=== PATIENT | female | born 1990 | race Caucasian/White ===

== ENCOUNTER 2019-04-07 20:35 | Emergency (ER) | payer OTHER ==
[2019-04-07 20:57] VITALS: BP 115/69; PULSE 72; TEMP 98.3; BMI 25.0
--- NOTE | 2019-04-07 21:50 | PDOC ---
Documentation entered by Maria Eugenia Perry SCRIBE, acting as scribe for Clover Reagan MD. Clover Reagan MD: This documentation has been prepared by the Orlando patel Lincy, SCRIBE, under my direction and personally reviewed by me in its entirety. I confirm that the documentation accurately reflects all work, treatment, procedures, and medical decision making performed by me. Attending Attestation - Resident Resident Name: Dipti Richards - ED Attending Attestation I have performed the following: I have examined & evaluated the patient, The case was reviewed & discussed with the resident, I agree w/resident's findings & plan, Exceptions are as noted - HPI HPI: 04/07/19 21:44 29-year-old female states her last menstrual period was February 01, 2019 and she noticed some bleeding when she wiped herself with toilet paper - Physicial Exam PE: 04/07/19 21:44 wnwd 29 yo female in no acute distress who noted blood on the toilet paper when she wiped. No pelvic cramping. head ncat neck supple lungs cta b/l cvs [id number] abd nontender no flank pain skin warm and dry neuro axox3,ambulatory - Medical Decision Making 04/07/19 21:50 She said her last menstrual period was February 01 She does have an appointment in April 16 with [facility] 04/07/19 21:52 Plan: type and screen, CBC, beta hCG and transvaginal ultrasound 04/07/19 22:41 blood type A POSITIVE 04/07/19 22:41 cbc no anemia, no leukocytosis 04/07/19 23:32 Beta-hCG is over 20,000 Transvaginal ultrasound shows a gestational sac but there is no pole and no cardiac activity concern for demise or ectopic Patient has an appointment this week with [facility] and she has no pelvic cramping or pain at this time Patient was told to return immediately if she develops any pain she was told to have repeat beta-hCG and ultrasound in 48 hours
[2019-04-07 21:51] LABS: BASO % 0.7 % (0-2.0); EOS % 2.4 % (0-4.5); HEMATOCRIT 39.7 % (32.4-45.2); HEMOGLOBIN 13.5 GM/dL (10.7-15.3); LYMPH % 44.4 % (8-40); MCHC 33.9 g/dl (32.0-36.0); MEAN CELL VOLUME 94.2 fl (80-96); MEAN PLT VOLUME 8.9 fl (7.5-11.1); NEUT % 45.5 % (42.8-82.8); PLATELET COUNT 227 K/MM3 (134-434); RBC 4.22 M/mm3 (3.60-5.2); RDW 12.8 % (11.6-15.6); WHITE BLOOD COUNT 4.9 K/mm3 (4.0-10.0)
--- NOTE | 2019-04-07 22:07 | PDOC ---
History of Present Illness - General Chief Complaint: Vaginal Bleeding Stated Complaint: BLEEDING (9WEEKS ) Time Seen by Provider: 04/07/19 21:16 - History of Present Illness Initial Comments: 04/07/19 22:02 29 y/o F with no significant PMH present to the ED for spotting while 9 weeks . Pt explains that she noted blood on toilet paper after wiping herself this morning. the spotting is associated with mild LLQ abdominal pain but otherwise no other symptoms. Pt took a home test after missed period with positive result. Pt does have her first appointment coming up on monday. She denies any precipitating event. Denies any persistent cramping, discharge or clots. 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 ROS: Constitutional: no fever,no chills HEENT: no throat pain, no dysphagia Cardiovascular: no chest pain, no palpitations Respiratory: no cough, no shortness of breath Gastrointestinal: no Nausea, vomiting Genitourinary: no dysuria no urgency Musculoskeletal: no myalgia, no arthralgia Skin: warm and dry Neurologic: no headache, no weakness Psych: no agitation, no anxiety PE: VSS GEN: NAD HEENT: PERRLA, moist membrane, clear conjunctiva NECK: no JVD CHEST: vesicular breath sounds b/l HEART: RRR no murmur, rubs or gallop ABDOMEN: + BS, NTND Extremities: 2+ pulses, no edema SKIN: warm, dry MSK: normal ROM in all extremities PSYCH: normal affect Plan: Serum bHCG, type and screen, CBC, CMP, UA transvaginal US 04/07/19 22:11 CBC,CMP WBC 4.9 K/mm3 (4.0-10.0) 04/07/19 21:40 RBC 4.22 M/mm3 (3.60-5.2) 04/07/19 21:40 Hgb 13.5 GM/dL (10.7-15.3) 04/07/19 21:40 Hct 39.7 % (32.4-45.2) 04/07/19 21:40 MCV 94.2 fl (80-96) 04/07/19 21:40 MCH 32.0 pg (25.7-33.7) 04/07/19 21:40 MCHC 33.9 g/dl (32.0-36.0) 04/07/19 21:40 RDW 12.8 % (11.6-15.6) 04/07/19 21:40 Plt Count 227 K/MM3 (134-434) 04/07/19 21:40 MPV 8.9 fl (7.5-11.1) 04/07/19 21:40 Absolute Neuts (auto) 2.2 K/mm3 (1.5-8.0) 04/07/19 21:40 Neutrophils % 45.5 % (42.8-82.8) 04/07/19 21:40 Lymphocytes % 44.4 % (8-40) H 04/07/19 21:40 Monocytes % 7.0 % (3.8-10.2) 04/07/19 21:40 Eosinophils % 2.4 % (0-4.5) 04/07/19 21:40 Basophils % 0.7 % (0-2.0) 04/07/19 21:40 Nucleated RBC % 0 % (0-0) 04/07/19 21:40 Sodium 138 mmol/L (136-145) 04/07/19 21:40 Potassium 3.8 mmol/L (3.5-5.1) 04/07/19 21:40 Chloride 106 mmol/L (98-107) 04/07/19 21:40 Carbon Dioxide 24 mmol/L (21-32) 04/07/19 21:40 Anion Gap 8 MMOL/L (8-16) 04/07/19 21:40 BUN 11.4 mg/dL (7-18) 04/07/19 21:40 Creatinine 0.6 mg/dL (0.55-1.3) 04/07/19 21:40 Est GFR (CKD-EPI)AfAm 141.76 04/07/19 21:40 Est GFR (CKD-EPI)NonAf 122.31 04/07/19 21:40 Random Glucose 87 mg/dL (74-106) 04/07/19 21:40 Calcium 9.5 mg/dL (8.5-10.1) 04/07/19 21:40 Total Bilirubin 0.2 mg/dL (0.2-1) 04/07/19 21:40 AST 13 U/L (15-37) L 04/07/19 21:40 ALT 20 U/L (13-61) 04/07/19 21:40 Alkaline Phosphatase 41 U/L (45-117) L 04/07/19 21:40 Total Protein 7.6 g/dl (6.4-8.2) 04/07/19 21:40 Albumin 4.3 g/dl (3.4-5.0) 04/07/19 21:40 Beta HCG, Quant 60976.6 mIU/ml 04/07/19 21:40 cbc and cmp unremarkable. serum bHCG 88065.6 04/07/19 22:27 transvaginal US gestational sac 5 weeks 4 days in the endometrium. no yolk sac, pole, or cardiac activity. cannot exclude demise or ectopic . small adjacent subchorionic hemorrhage. type and screen A+. no need for rhogam. will discharge home with f/u with [facility] appointment at [facility] Past History - Past Medical History Allergies/Adverse Reactions: Allergies Allergy/AdvReac Type Severity Reaction Status Date / Time No Known Allergies Allergy Verified 04/07/19 20:57 COPD: No - Reproductive History Is Patient Now?: Yes - Psycho Social/Smoking Cessation Hx Smoking History: Never smoked Have you smoked in the past 12 months: No Information on smoking cessation initiated: No Hx Alcohol Use: No Drug/Substance Use Hx: No *Physical Exam - Vital Signs Last Vital Signs Temp Pulse Resp BP Pulse Ox 98.3 F 72 17 115/69 100 04/07/19 20:54 04/07/19 20:54 04/07/19 20:54 04/07/19 20:54 04/07/19 20:54 ED Treatment Course - LABORATORY CBC & Chemistry Diagram: 04/07/19 21:40 04/07/19 21:40 - ADDITIONAL ORDERS Additional order review: 04/07/19 21:40 RBC 4.22 MCV 94.2 MCHC 33.9 RDW 12.8 MPV 8.9 Neutrophils % 45.5 Lymphocytes % 44.4 H Monocytes % 7.0 Eosinophils % 2.4 Basophils % 0.7 - RADIOLOGY Radiology Studies Ordered: Category Date Time Status TRANSVAGINAL US PREG [US] Stat Ultrasound 04/07/19 21:25 Ordered Discharge - Discharge Information Problems reviewed: Yes Clinical Impression/Diagnosis: Spotting affecting in first trimester Condition: Improved Disposition: HOME - Admission No - Follow up/Referral Referrals: Naila Harrell MD [Primary Care Provider] - - Patient Discharge Instructions Patient Printed Discharge Instructions: DI for Vaginal Bleeding During Additional Instructions: You came into the Emergency room because of vaginal spotting while wiping today. We did blood work and a transvaginal ultrasound and it confirmed your . We also did a urine test which was negative for infection. 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 If you begin to experience severe abdominal pain, increasing bleeding, vaginal discharge, chest pain, shortness of breath please return to the emergency room immediately. - Post Discharge Activity
[2019-04-07 22:57] LABS: ALBUMIN 4.3 g/dl (3.4-5.0); BILIRUBIN,TOTAL 0.2 mg/dL (0.2-1); BLOOD UREA NITROGEN 11.4 mg/dL (7-18); CALCIUM 9.5 mg/dL (8.5-10.1); CREATININE 0.6 mg/dL (0.55-1.3); POTASSIUM 3.8 mmol/L (3.5-5.1); TOT PROT 7.6 g/dl (6.4-8.2)
== END 2019-04-07 23:42 | disposition home or self-care (01) ==
LOC: JER 20:35
DX: O26.891 Other specified pregnancy related conditions, first trimester (principal); O26.851 Spotting complicating pregnancy, first trimester; Z3A.01 Less than 8 weeks gestation of pregnancy
CPT/HCPCS: 36415; 76817-TC; 80053; 84702; 85025; 86850; 86900; 86901; 99284-25

== ENCOUNTER 2019-11-29 18:23 | Emergency (ER) | payer OTHER ==
[2019-11-29 18:41] VITALS: BP 138/80; PULSE 83; TEMP 98.7; BMI 25.9
--- OUTSIDE RECORDS SUMMARY | 2019-11-29 18:44 | XMS ---
:1990 Author Organization [facility] Support Name Relationship Address Phone FRANCISCO SHOP Unavailable [address] [place] [address] UE Unavailable Unavailable Unavailable CHRIS MOY [address] [facility] [address] [place] [id number] Re-disclosure Warning The records that you are about to access may contain information from federally- assisted alcohol or drug abuse programs. If such information is present, then the following federally mandated warning applies: This information has been disclosed to you from records protected by federal confidentiality rules (42 CFR part 2). The federal rules prohibit you from making any further disclosure of this information unless further disclosure is expressly permitted by the written consent of the person to whom it pertains or as otherwise permitted by 42 CFR part 2. A general authorization for the release of medical or other information is NOT sufficient for this purpose. The Federal rules restrict any use of the information to criminally investigate or prosecute any alcohol or drug abuse patient.The records that you are about to access may contain highly sensitive health information, the redisclosure of which is protected by Article 27-F of the [facility] Public Health law. If you continue you may haveaccess to information: Regarding HIV / AIDS; Provided by facilities licensed or operated by the [facility] Office of Mental Health; or Provided by the [facility] Office for People With Developmental Disabilities. If such information is present, then the following [facility] mandated warning applies: This information has been disclosed to you from confidential records which are protected by state law. State law prohibits you from making any further disclosure of this information without the specific written consent of the person to whom it pertains, or as otherwise permitted by law. Any unauthorized further disclosure in violation of state law may result in a fine or group home sentence or both. A general authorization for the release of medical or other information is NOT sufficient authorization for further disclosure. Insurance Providers Payer name Policy type Policy ID Covered Covered constitution party's Policy P maddie / Coverage constitution party ID relationship to [employer] type [place] IDALIA [id number] [address] [place] [address] CAP
[2019-11-29 19:28] LABS: BASO % 0.6 % (0-2.0); EOS % 1.2 % (0-4.5); HEMATOCRIT 41.6 % (32.4-45.2); HEMOGLOBIN 14.1 GM/dL (10.7-15.3); LYMPH % 34.5 % (8-40); MCHC 33.9 g/dl (32.0-36.0); MEAN CELL VOLUME 94.4 fl (80-96); MEAN PLT VOLUME 9.4 fl (7.5-11.1); MONO % 6.3 % (3.8-10.2); NEUT % 57.4 % (42.8-82.8); PLATELET COUNT 233 K/MM3 (134-434); RDW 12.2 % (11.6-15.6); WHITE BLOOD COUNT 5.6 K/mm3 (4.0-10.0)
--- NOTE | 2019-11-29 19:35 | PDOC ---
History of Present Illness - General History Source: Patient Exam Limitations: Clinical Condition - History of Present Illness Travel History: No Initial Comments: 11/29/19 19:31 Patient G3, P1 LMP October 09 present with complaint of cramping lower abdominal pain with blood on tissue when using bathroom today. Patient reported she is 7 weeks by her LMP. Patient reported using the bathroom and saw blood in the tissue when she wiped. Denies active vaginal bleeding. Patient has not used any sanitary pad. Denies fever, chills, burning with urination, dysuria. This is a wanted . Patient has not had any visit for this . Denies any other symptoms Timing/Duration: reports: intermittent Quality: reports: mild, cramping Abdominal Pain Onset Location: reports: suprapubic Pain Radiation: reports: no radiation <Beny Montana - Last Filed: 11/29/19 20:09> <Sherine Stewart - Last Filed: 11/29/19 21:43> - General Chief Complaint: Vaginal Bleeding Stated Complaint: 7 WEEKS , BLEEDING Time Seen by Provider: 11/29/19 18:48 Past History - Medical History COPD: No - Reproductive History Is Patient Now?: Yes (#): 3 Para: 1 - Psycho-Social/Smoking History Smoking History: Never smoked Have you smoked in the past 12 months: No - Substance Abuse Hx (Audit-C & DAST Scrn) How often the patient has a drink containing alcohol: Never Score: In Men: 4 or > Positive; In Women: 3 or > Positive: 0 Screen Result (Pos requires Nsg. Audit-10AR): Negative In the last yr the pt used illegal drug/Rx for NonMed reason: No Score: Yes response is considered Positive: 0 Screen Result (Positive result requires Nsg. DAST-10): Negative <Beny Montana - Last Filed: 11/29/19 20:09> <Sherine Stewart - Last Filed: 11/29/19 21:43> - Medical History Allergies/Adverse Reactions: Allergies Allergy/AdvReac Type Severity Reaction Status Date / Time No Known Allergies Allergy Verified 11/29/19 18:27 Home Medications: Ambulatory Orders NK [No Known Home Medication] 11/29/19 Review of Systems - Review of Systems Able to Perform ROS?: Yes Is the patient limited Italian proficient: No Constitutional: No: Chills, Fever, Malaise HEENTM: No: Symptoms Reported, See HPI, Eye Pain, Blurred Vision, Tearing, Recent change in vision, Double Vision, Cataracts, Ear Pain, Ocular Prothesis, Ear Discharge, Nose Pain, Nose Congestion, Tinnitus, Nose Bleeding, Hearing Loss, Throat Pain, Throat Swelling, Mouth Pain, Dental Problems, Difficulty Swallowing, Mouth Swelling, Other Respiratory: No: Symptoms reported, See HPI, Cough, Orthopnea, Shortness of Breath, SOB with Exertion, SOB at Rest, Stridor, Wheezing, Productive cough, Hemoptysis, Other Cardiac (ROS): No: Symptoms Reported, See HPI, Chest Pain, Edema, Irregular Heart Rate, Lightheadedness, Palpitations, Syncope, Chest Tightness, Other ABD/GI: Yes: Symptoms Reported, See HPI, Abdominal cramping (lower abdomen intermittent cramping). No: Abd. Pain w/ defecation, Blood Streaked Bowels, Constipated, Diarrhea, Difficulty Swallowing, Nausea, Poor Appetite, Vomiting, Indigestion : Yes: Symptoms Reported, See HPI, Frequency, Other (vaginal bleed). No: Burning, Dysuria, Discharge, Hematuria, Urgency Musculoskeletal: No: Symptoms Reported Integumentary: No: Symptoms Reported All Other Systems: Reviewed and Negative <Beny Montana - Last Filed: 11/29/19 20:09> *Physical Exam - Vital Signs Last Vital Signs Temp Pulse Resp BP Pulse Ox 98.7 F 83 16 138/80 100 11/29/19 18:27 11/29/19 18:27 11/29/19 18:27 11/29/19 18:27 11/29/19 18:27 - Physical Exam General Appearance: Yes: Nourished, Appropriately Dressed. No: Apparent Distress HEENT: positive: Normal ENT Inspection Respiratory/Chest: positive: Lungs Clear, Normal Breath Sounds. negative: Chest Tender, Respiratory Distress, Accessory Muscle Use Cardiovascular: positive: Regular Rhythm, Regular Rate Female Pelvic Exam: positive: normal external exam, cervical os closed, other (trace amount of light white discharge in vaginal vault with no blood in vaginal vault. Cervical os closed. No cervical motion tenderness. No abdominal tenderness exam). negative: adnexal tenderness, vaginal bleeding Gastrointestinal/Abdominal: positive: Normal Bowel Sounds, Flat. negative: Tender, Guarding, Tenderness Musculoskeletal: positive: Normal Inspection. negative: CVA Tenderness Extremity: positive: Normal Inspection, Normal Range of Motion Integumentary: positive: Normal Color Neurologic: positive: Fully Oriented, Alert, Normal Mood/Affect, Normal Response, Motor Strength 5/5 <Beny Montana - Last Filed: 11/29/19 20:09> - Vital Signs Last Vital Signs Temp Pulse Resp BP Pulse Ox 98.7 F 83 16 138/80 100 11/29/19 18:27 11/29/19 18:27 11/29/19 18:27 11/29/19 18:27 11/29/19 18:27 <Sherine Stewart - Last Filed: 11/29/19 21:43> ED Treatment Course - LABORATORY CBC & Chemistry Diagram: 11/29/19 19:00 - RADIOLOGY Radiology Studies Ordered: Category Date Time Status TRANSVAGINAL US PREG [US] Stat Ultrasound 11/29/19 18:56 Ordered <Beny Montana - Last Filed: 11/29/19 20:09> - LABORATORY CBC & Chemistry Diagram: 11/29/19 19:00 - ADDITIONAL ORDERS Additional order review: Laboratory Results 11/29/19 11/29/19 19:10 19:00 Urine Color Yellow Urine Appearance Clear Urine pH 5.5 Ur Specific [place] 1.016 Urine Protein Negative Urine Glucose (UA) Negative Urine Ketones 2+ H Urine Blood Negative Urine Nitrite Negative Urine Bilirubin Negative Urine Urobilinogen 0.2 Ur Leukocyte Esterase 2+ H Urine WBC (Auto) 7 Urine RBC (Auto) 12 Urine Casts (Auto) 3 U Epithel Cells (Auto) 26 Urine Bacteria (Auto) 60 Blood Type A POSITIVE Antibody Screen Negative 11/29/19 19:00 RBC 4.40 MCV 94.4 MCHC 33.9 RDW 12.2 MPV 9.4 Neutrophils % 57.4 D Lymphocytes % 34.5 D Monocytes % 6.3 Eosinophils % 1.2 Basophils % 0.6 <Sherine Stewart - Last Filed: 11/29/19 21:43> Medical Decision Making - Medical Decision Making 11/29/19 19:32 Patient G3, P1 LMP October 09 present with complaint of cramping lower abdominal pain with blood on tissue when using bathroom today. Patient reported she is 7 weeks by her LMP. Patient reported using the bathroom and saw blood in the tissue when she wiped. Denies active vaginal bleeding. Patient has not used any sanitary pad. Denies fever, chills, burning with urination, dysuria. This is a wanted . Patient has not had any visit for this . Denies any other symptoms Exam significant for trace amount of light white discharge in vaginal vault with no blood in vaginal vault. Cervical os closed. No cervical motion tenderness. No abdominal tenderness exam. Patient in no acute distress. Symptoms likely threatened AB. Given no documented IUP, will do beta-hCG and transvaginal ultrasound to evaluate . CBC and type and screen lab ordered. Treat based on lab imaging results 11/29/19 20:09 CBC shows no acute abnormality. beta hcg pending . pt signed out to ANTOINETTE Hernandez for f/u care <Beny Montana - Last Filed: 11/29/19 20:09> - Medical Decision Making The patient was seen and evaluated in conjunction with midlevel provider under my direct supervision, ancillary studies were reviewed. I agree with the plan as outlined with_ANTOINETTE Montana. HPI, workup/dispo as outlined. VS reviewed, wnl. Vital Signs Temp Pulse Resp BP Pulse Ox 98.7 F 83 16 138/80 100 11/29/19 18:27 11/29/19 18:27 11/29/19 18:27 11/29/19 18:27 11/29/19 18:27 DDx female VB: ectopic , miscarriage, demise, subchorionic hematoma, retained POC, normal first trimester bleeding, UTI in in . Fibroid uterus, vaginitis, infection, electrolyte/metabolic derangements, anemia. Rh positive, no rhogam indicated VS wnl, normotensive, no tachy or hypoxia/respiratory distress. abdomen benign on reeval and no peritoneal findings, no VB here, controlled Beta hcg >5000 TVUS with single live IUP at 5.5 weekks, small implantation bleed, dominant follicle, no torsion Dispo: OB followup, bleeding precautions; return to ED if persistent and heavy vaginal bleeding, persistent pelvic pain not relieved by your prescribed medications, dizziness, shortness of breath, new and persistent fevers, other foul smelling discolored vaginal discharge, or for any other concerns. 11/29/19 20:38 11/29/19 21:43 <Sherine Stewart - Last Filed: 11/29/19 21:43> Discharge - Discharge Information Problems reviewed: Yes <RbuénBeny - Last Filed: 11/29/19 20:09> <Sherine Stewart - Last Filed: 11/29/19 21:43> - Discharge Information Clinical Impression/Diagnosis: Threatened in first trimester Condition: Stable - Follow up/Referral Referrals: Mello Avalos MD [Primary Care Provider] - - Patient Discharge Instructions - Post Discharge Activity
[2019-11-29 19:43] LABS: EPI CELLS 26 /uL (0-25.1); HYALINE CASTS 3 /uL (0-3.1); PH,URINE 5.5 (5.0-8.0); URINE APPEARANCE CLEAR; URINE BACTERIA 60 /uL (0-1359); URINE BILIRUBIN NEGATIVE (NEGATIVE); URINE COLOR YELLOW; URINE GLUCOSE (UA) NEGATIVE (NEGATIVE); URINE KETONE 2+ (NEGATIVE); URINE LEUK ESTERASE 2+ (NEGATIVE); URINE NITRITE NEGATIVE (NEGATIVE); URINE PROTEIN NEGATIVE (NEGATIVE); URINE RBC 12 /uL (0-23.9); URINE UROBILINOGEN 0.2 mg/dL (0.2-1.0); URINE WBC 7 /uL (0-25.8)
--- NOTE | 2019-11-29 21:47 | PDOC ---
*Physical Exam - Vital Signs Last Vital Signs Temp Pulse Resp BP Pulse Ox 98.7 F 83 16 138/80 100 11/29/19 18:27 11/29/19 18:27 11/29/19 18:27 11/29/19 18:27 11/29/19 18:27 - Physical Exam General Appearance: Yes: Appropriately Dressed. No: Apparent Distress HEENT: positive: Normal Voice Neck: positive: Supple Respiratory/Chest: negative: Respiratory Distress Gastrointestinal/Abdominal: positive: Soft. negative: Tender Integumentary: positive: Dry, Warm Neurologic: positive: Fully Oriented, Alert, Normal Mood/Affect ED Treatment Course - LABORATORY CBC & Chemistry Diagram: 11/29/19 19:00 - ADDITIONAL ORDERS Additional order review: Laboratory Results 11/29/19 11/29/19 11/29/19 19:10 19:00 19:00 Beta HCG, Quant 5252.0 Urine Color Yellow Urine Appearance Clear Urine pH 5.5 Ur Specific [place] 1.016 Urine Protein Negative Urine Glucose (UA) Negative Urine Ketones 2+ H Urine Blood Negative Urine Nitrite Negative Urine Bilirubin Negative Urine Urobilinogen 0.2 Ur Leukocyte Esterase 2+ H Urine WBC (Auto) 7 Urine RBC (Auto) 12 Urine Casts (Auto) 3 U Epithel Cells (Auto) 26 Urine Bacteria (Auto) 60 Blood Type A POSITIVE Antibody Screen Negative 11/29/19 19:00 RBC 4.40 MCV 94.4 MCHC 33.9 RDW 12.2 MPV 9.4 Neutrophils % 57.4 D Lymphocytes % 34.5 D Monocytes % 6.3 Eosinophils % 1.2 Basophils % 0.6 Medical Decision Making - Medical Decision Making 11/29/19 21:45 Received signout from ANTOINETTE Montana pending w/u for 1st trimester bleed: Ultrasound read as 5 weeks 6 days IUP with heart rate and small subchorionic bleed. Beta over 5000. Rh+. Findings discussed with patient who states she will follow-up with her OB on Monday. 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
== END 2019-11-29 22:39 | disposition home or self-care (01) ==
LOC: JER 18:23
DX: O20.0 Threatened abortion (principal); Z3A.01 Less than 8 weeks gestation of pregnancy
CPT/HCPCS: 36415; 76817-TC; 81003; 84702; 85025; 86850; 86900; 86901; 87086; 87491; 87591; 99284-25